=== PATIENT | female | born 1985 | race Hispanic/Latino ===

== ENCOUNTER 2022-02-24 16:37 | Emergency (ER) | payer SELFPAY ==
[2022-02-24] MEDS ORDERED: Lidocaine 1% PF 5 ML VIAL ONE (19:59)
[2022-02-24] MEDS ORDERED: Bupivacaine 0.25% 10 ML VIAL ONE (20:00)
[2022-02-24] MEDS ORDERED: Bacitracin 1 PK ONE (20:23)
== END 2022-02-24 20:37 | disposition home or self-care (01) ==
LOC: ERS 16:37
DX: B07.9 Viral wart, unspecified (principal)
CPT/HCPCS: 10060; S0020